=== PATIENT | male | born 1995 | race Caucasian/White ===

== ENCOUNTER 2020-05-11 03:17 | Emergency (ER) | payer OTHER ==
[~2020-05-11] VITALS: Ht 160 cm; Wt 56.7 kg
[2020-05-11] MEDS ORDERED: ONDANSETRON HCL INJ 2MG/ML 2ML 2 MG/ML VIAL IV STA (03:23)
[2020-05-11] MEDS ORDERED: PANTOPRAZOLE 40 MG 10ML VIAL IV STA (03:23)
[2020-05-11] MEDS ORDERED: SODIUM CHLORIDE 0.9% 1000ML 1,000 ML IV ONE (03:30)
[2020-05-11 03:35] LABS: BASOPHILS # (AUTO) 0.1 (0.0-0.1); BASOPHILS % 0.4 % (0.0-1.0); EOSINOPHILS # (AUTO) 0.3 (0.0-0.4); EOSINOPHILS % 2.8 % (0.0-6.0); HEMATOCRIT 43.7 % (38.2-49.6); HEMOGLOBIN 14.6 g/dL (14.0-18.0); LYMPHOCYTES # (AUTO) 2.1 (1.0-3.2); LYMPHOCYTES % 18.5 % (18.0-39.1); MEAN CORPUSCULAR HEMOGLOBIN 32.3 pg (28-32); MEAN CORPUSCULAR HGB CONC 33.4 g/dL (31-35); MEAN CORPUSCULAR VOLUME 96.7 fL (81-99); MONOCYTES # (AUTO) 0.7 (0.2-0.8); MONOCYTES % 5.9 % (4.4-11.3); NEUTROPHILS # (AUTO) 8.1 (2.1-6.9); PLATELET COUNT 278 x10e3/uL (140-360); RED BLOOD COUNT 4.52 x10e6/uL (4.3-5.7)
[2020-05-11] MEDS ORDERED: ONDANSETRON HCL INJ 2MG/ML 2ML 2 MG/ML VIAL ONE (03:44)
[2020-05-11] MEDS ORDERED: PANTOPRAZOLE 40 MG 10ML VIAL ONE (03:44)
[2020-05-11 03:53] LABS: AMYLASE 37 U/L (25-125); LIPASE 16 U/L (8-78)
[2020-05-11 03:55] LABS: ALANINE AMINOTRANSFERASE 18 IU/L (0-55); ALBUMIN 3.9 g/dL (3.5-5.0); ALBUMIN/GLOBULIN RATIO 1.3 (0.8-2.0); ALKALINE PHOSPHATASE 82 IU/L (40-150); ANION GAP 13.8 mmol/L (8-16); BLOOD UREA NITROGEN 7 mg/dL (7-26); BUN/CREATININE RATIO 8 (6-25); CALCIUM 9.3 mg/dL (8.4-10.2); CARBON DIOXIDE 26 mmol/L (22-29); CHLORIDE 102 mmol/L (98-107); CREATININE, SERUM 0.84 mg/dL (0.72-1.25); EST GLOMERULAR FILTRATION RATE > 60 ML/MIN (60-); GLUCOSE 107 mg/dL (74-118); POTASSIUM 3.8 mmol/L (3.5-5.1); SODIUM 138 mmol/L (136-145)
[2020-05-11 04:08] VITALS: BP 104/61
== END 2020-05-11 04:20 | disposition home or self-care (01) ==
LOC: ER 03:31
DX: R10.11 Right upper quadrant pain (principal); K29.70 Gastritis, unspecified, without bleeding; R11.0 Nausea
CPT/HCPCS: 36415; 80053; 82150; 83690; 85025; 99283; C9113; J2405; J7030